=== PATIENT | female | born 1990 | race Hispanic/Latino ===

== ENCOUNTER 2018-02-25 21:11 | Emergency (ER) | payer MEDICAID ==
[2018-02-25 21:42] VITALS: BP 124/66
[2018-02-25 22:19] LABS: Basophils # (Auto) 0.1 K/mm3 (0.0-0.1); Basophils % (Auto) 0.8 % (0.0-1.8); Eosinophils # (Auto) 0.1 K/mm3 (0.0-0.4); Eosinophils % (Auto) 0.7 % (0.0-4.3); Hematocrit 37.1 % (30.3-42.9); Hemoglobin 12.6 gm/dl (10.1-14.3); Lymphocytes % (Auto) 31.3 % (13.4-35.0); Mean Corpuscular HGB Conc 34 % (30-34); Mean Corpuscular Hemoglobin 29 pg (28-32); Mean Corpuscular Volume 84 fl (79-97); Monocytes # (Auto) 0.6 K/mm3 (0.0-0.8); Monocytes % (Auto) 6.6 % (0.0-7.3); Platelet Count 231 K/mm3 (140-440); Red Cell Distribution Width 13.8 % (13.2-15.2)
[2018-02-25 22:37] LABS: Bacteria,Urine 4+ /HPF (Negative); Bilirubin,Urine NEG (Negative); Blood,Urine NEG (Negative); Color,Urine Yellow (Yellow); Protein,Urine <15 mg/dL mg/dL (Negative); Urobilinogen,Urine < 2.0 mg/dL (<2.0)
[2018-02-25 22:45] LABS: Amphetamine Screen,Urine PRESUMPTIVE NEGATIVE; Benzodiazepines Screen,Urine PRESUMPTIVE NEGATIVE; Cannabinoid Screen,Urine PRESUMPTIVE NEGATIVE; Cocaine Screen,Urine PRESUMPTIVE NEGATIVE; Methadone Screen,Urine PRESUMPTIVE NEGATIVE; Opiate Screen,Urine PRESUMPTIVE NEGATIVE
[2018-02-25 22:51] LABS: Alanine Aminotransferase 21 units/L (7-56); Albumin 4.1 g/dL (3.9-5); BUN/Creatinine Ratio 18; Blood Urea Nitrogen 11 mg/dL (7-17); Hemolysis Index 19
== END 2018-02-25 22:09 | disposition left against medical advice (07) ==
LOC: ED 21:11
DX: R44.1 Visual hallucinations (principal); Z53.21 Procedure and treatment not carried out due to patient leaving prior to being seen by health care provider
CPT/HCPCS: 36415; 80053; 80307; 81001; 84443; 84703; 85025; 93005; 93010; G0480; 80320

== ENCOUNTER 2020-10-28 18:46 | Emergency (ER) | payer MEDICAID ==
[2020-10-28 23:02] VITALS: BP 152/88
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
== END 2020-10-29 01:15 | disposition home or self-care (01) ==
LOC: ED 18:46
DX: M54.89 Other dorsalgia (principal); V89.2XXA Person injured in unspecified motor-vehicle accident, traffic, initial encounter; Y93.89 Activity, other specified; Y92.410 Unspecified street and highway as the place of occurrence of the external cause; Y99.8 Other external cause status
CPT/HCPCS: 99282